=== PATIENT | female | born 1995 | race Two or more races ===

== ENCOUNTER 2020-02-29 08:39 | Emergency (ER) | payer MEDICAID, OTHER ==
[~2020-02-29] VITALS: Ht 154.9 cm; Wt 61.5 kg
[2020-02-29] MEDS ORDERED: KETOROLAC 30 MG/1 ML ONE (09:52)
[2020-02-29] MEDS ORDERED: KETOROLAC 30 MG/1 ML IM ONE (10:00)
[2020-02-29 10:12] VITALS: BP 120/66
== END 2020-02-29 10:59 | disposition home or self-care (01) ==
LOC: ED 10:23
DX: S86.111A Strain of other muscle(s) and tendon(s) of posterior muscle group at lower leg level, right leg, initial encounter (principal); X58.XXXA Exposure to other specified factors, initial encounter; Y93.01 Activity, walking, marching and hiking; Y92.89 Other specified places as the place of occurrence of the external cause; Y99.8 Other external cause status
CPT/HCPCS: 93971; 96372; 99284; J1885

== ENCOUNTER 2020-03-06 23:09 | Emergency (ER) | payer MEDICAID ==
[~2020-03-06] VITALS: Ht 154.9 cm; Wt 60.9 kg
[2020-03-06 23:35] LABS: MICROSCOPIC INDICATED
--- NOTE | 2020-03-07 01:26 | NUR ---
pt called to room from lobby
[2020-03-07] MEDS ORDERED: ACETAMINOPHEN 500 MG TABLET PO ONE (01:30)
[2020-03-07] MEDS ORDERED: KETOROLAC 30 MG/1 ML IM ONE (01:30)
--- NOTE | 2020-03-07 01:33 | NUR ---
ERP AT BEDSIDE FOR EVAL.
[2020-03-07] MEDS ORDERED: ACETAMINOPHEN 500 MG TABLET ONE (01:44)
[2020-03-07] MEDS ORDERED: KETOROLAC 30 MG/1 ML ONE (01:44)
--- NOTE | 2020-03-07 01:48 | NUR ---
MEDICATED PER OCT. LAB AT BEDSIDE.
[2020-03-07 02:01] LABS: BASOPHILS # (AUTO) 0.04 x10^3/uL (0-0.1); BASOPHILS % (AUTO) 1 % (0-1); EOSINOPHILS # (AUTO) 0.12 x10^3/uL (0-0.4); EOSINOPHILS % (AUTO) 1 % (1-7); LYMPHOCYTES # (AUTO) 2.55 x10^3/uL (1-3.4); LYMPHOCYTES % (AUTO) 31 % (22-44); MD NO; MEAN CORPUSCULAR HEMOGLOBIN 29.7 pg (27.0-34.8); MEAN CORPUSCULAR HGB CONC 34.1 g/dL (32.4-35.8); MEAN CORPUSCULAR VOLUME 86.9 fL (80-100); MEAN PLATELET VOLUME 8.4 fL (7.4-10.4); MONOCYTES # (AUTO) 0.57 x10^3/uL (0.2-0.8); MONOCYTES % (AUTO) 7 % (2-9); NEUTROPHILS # (AUTO) 5.04 x10^3/uL (1.8-6.8); NEUTROPHILS % (AUTO) 61 % (42-75); PLATELET COUNT 270 x10^3/uL (130-400); RED BLOOD COUNT 4.66 x10^6/uL (3.82-5.3); RED CELL DISTRIBUTION WIDTH 13.1 % (9.6-15.2)
[2020-03-07 02:09] LABS: ALANINE AMINOTRANSFERASE 16 U/L (12-78); ALBUMIN 3.9 g/dL (3.4-5.0); ANION GAP 5 mmol/L (5-15); CALCIUM 8.7 mg/dL (8.5-10.1); CHLORIDE 107 mmol/L (98-107); CREATININE 1.07 mg/dL (0.55-1.02)
[2020-03-07 02:12] LABS: ALKALINE PHOSPHATASE 73 U/L (45-117); BILIRUBIN,TOTAL 0.4 mg/dL (0.2-1.0); TOTAL PROTEIN 7.8 g/dL (6.4-8.2)
--- NOTE | 2020-03-07 02:32 | NUR ---
PT TAKEN TO ULTRASOUND.
--- NOTE | 2020-03-07 02:54 | NUR ---
PT BACK FROM ULTRASOUND. RESTING ON GURNEY IN NO ACUTE DISTRESS.
--- NOTE | 2020-03-07 03:13 | NUR ---
US READ BACK, CHART UP FOR RECHECK
--- NOTE | 2020-03-07 03:51 | NUR ---
PT RESTING ON GURNEY, REPORTS PAIN IS BETTER. VSS.
[2020-03-07 04:36] VITALS: BP 106/56
== END 2020-03-07 05:24 | disposition home or self-care (01) ==
LOC: ED 23:39
DX: M54.5 Low back pain (principal); R10.9 Unspecified abdominal pain; R11.2 Nausea with vomiting, unspecified
CPT/HCPCS: 36415; 76770; 80053; 81001; 81025; 83690; 85025; 87086; 96372; 99284; J1885